=== PATIENT | female | born 1955 | race Caucasian/White ===

== ENCOUNTER 2020-11-04 05:51 | Inpatient (IN) | payer BC ==
[2020-10-28 11:36] LABS: BASOPHILS # (AUTO) 0.1 X10'3 (0-0.2); BASOPHILS % (AUTO) 1.2 % (0-1); EOSINOPHILS # (AUTO) 0.4 X10'3 (0-0.9); EOSINOPHILS % (AUTO) 8.3 % (0-6); LYMPHOCYTES # (AUTO) 1.7 X10'3 (1.1-4.8); LYMPHOCYTES % (AUTO) 31.6 % (21-51); MEAN CORPUSCULAR HEMOGLOBIN 30.6 PG (27.0-31.0); MEAN CORPUSCULAR HGB CONC 33.7 g/dL (33.0-36.5); MEAN CORPUSCULAR VOLUME 90.9 FL (78-98); MEAN PLATELET VOLUME 8.2 FL (7.4-10.4); MONOCYTES # (AUTO) 0.4 X10'3 (0-0.9); MONOCYTES % (AUTO) 7.6 % (2-12); NEUTROPHILS # (AUTO) 2.8 X10'3 (1.8-7.7); NEUTROPHILS % (AUTO) 51.3 % (42-75); PRE OP HEMATOCRIT 41.6 % (35.0-45.0); PRE OP PLATELET COUNT 241 X10'3 (140-440); RED BLOOD COUNT 4.58 X10'6 (4.20-5.60); RED CELL DISTRIBUTION WIDTH 13.8 % (11.5-14.5)
[2020-10-28 11:49] LABS: PRE OP INR 1.1 INR; PRE OP PROTIME 11.4 SECONDS (9.0-12.0)
[2020-10-28 16:31] LABS: ALBUMIN 4.1 G/DL (3.4-5.0); ALBUMIN/GLOBULIN RATIO 1.3 (1.1-1.5); ALKALINE PHOSPHATASE 70 IU/L (46-116); BLOOD UREA NITROGEN 11 MG/DL (7-18); BUN/CREATININE RATIO 12.6 (6.6-38.0); CALCIUM 9.8 MG/DL (8.5-10.1); CHLORIDE 106 MMOL/L (99-107); CREATININE 0.87 MG/DL (0.40-0.90); PRE OP ALT 19 U/L (30-65); PRE OP ANION GAP 7 (8-16); PRE OP AST 22 U/L (10-37); PRE OP BILIRUB, TOTAL 0.7 MG/DL (0.0-1.0); PRE OP GLUCOSE 92 MG/DL (70-104); PRE OP POTASSIUM 4.3 MMOL/L (3.4-5.1); PRE OP SODIUM 142 MMOL/L (135-145); TOTAL CARBON DIOXIDE 29.2 MMOL/L (24-32); TOTAL PROTEIN 7.3 G/DL (6.4-8.2); eGFR 66 ML/MIN
[~2020-11-04] VITALS: Ht 170.2 cm; Wt 60.3 kg
[2020-11-04] VITALS (16 sets, daily range): BP systolic 117–141; BP diastolic 70–86
[~2020-11-04 05:51] MED LIST: CALC600T35 PO; IBAN150T21 PO; INDOCYANINE GREEN 25 MG/10 ML VIAL IV ONE; LORA10TA7 PO; MALTODEXTRIN/FRUCTOSE 0.68 KCAL/ML LIQUID 296ML BOTTLE PO ONE; NIAC500T44 PO; ceFOXitin 2GM-NS 100mL ADDvant 100 ML IV ONE; famotidine 20mg tablet PO ONE; metroNIDAZOLE-Flagyl 500mg/NS 100 ML IV ONE; ringers solution, lacted 1,000 ML IV SCH
[2020-11-04] MEDS ORDERED: LIDOcaine 1% W/epiNEPHrine 1:100,000 20ml vial ONE (06:44)
[2020-11-04] MEDS ORDERED: BUPIVAcaine/PF 2.5 mg/ml (0.25%) 30ml vial ONE (06:44)
[2020-11-04] MEDS ORDERED: proCHLORperazine 10 MG/2 ml inj IV PRN (06:55)
[2020-11-04] MEDS ORDERED: ondansetron/PF 4mg/2ml inj IV PRN ×2 (06:55→11:00)
[2020-11-04] MEDS ORDERED: morphine 4 MG/ML inj SYRINge IV PRN (06:55)
[2020-11-04] MEDS ORDERED: ringers solution, lacted 1,000 ML IV SCH (06:55)
[2020-11-04] MEDS ORDERED: morphine 2 MG/ML inj. syringe IV PRN (06:55)
[2020-11-04] MEDS ORDERED: meperidine/PF 25mg/ml syringe IV PRN ×3 (06:55)
[2020-11-04] MEDS ORDERED: INDOCYANINE GREEN 25 MG/10 ML VIAL IV ONE (07:00)
[2020-11-04] MEDS ORDERED: midazolam 1 mg/ML 2ml injection ONE (07:08)
[2020-11-04] MEDS ORDERED: rocuronium 10mg/ml inj IV ONE (07:08)
[2020-11-04] MEDS ORDERED: fentaNYL /PF 50mcg/ml 5ml ampule ONE (07:08)
[2020-11-04] MEDS ORDERED: propofol inj 20 ML IV ONE (07:09)
[2020-11-04] MEDS ORDERED: dexamethasone sod phosphate 10mg/ml inj ONE (07:16)
[2020-11-04] MEDS ORDERED: sevoflurane 250ml liquid IH ONE (07:16)
[2020-11-04] MEDS ORDERED: neostigmine methylsulfate 1 MG/ML 10ml vial ONE (07:16)
[2020-11-04] MEDS ORDERED: acetaminophen 1000 MG/100ml vial IV ONE (07:16)
[2020-11-04] MEDS ORDERED: dexamethasone sod phosphate 4mg/ml inj. ONE (10:10)
[2020-11-04] MEDS ORDERED: ondansetron/PF 4mg/2ml inj ONE (10:10)
[2020-11-04] MEDS ORDERED: HYDROcodone/acetaminophen 5mg/325mg tablet PO PRN (11:00)
--- NOTE | 2020-11-04 11:02 | NUR ---
Received from OR via , accompanied by Anesthesiologist DR DUDLEY and report given by Anesthesiolgist. AWAKENS TO VOICE. VITALS STABLE. DRESSINGS DI. MATTY PAIN. ABD SOFT. CARREON WITH CLEAR URINE.
--- NOTE | 2020-11-04 11:45 | NUR ---
Received report from CELY Beaulieu. Awaiting patient arrival to room 344A.
--- NOTE | 2020-11-04 11:52 | NUR ---
Report called to receiving nurse. Transferred via BED Belongings . Special Issues communicated to receiving nurse. AWAKE AND ORIENTED. VITALS STABLE. DRESSINGS DI. MATTY PAIN. TO SURGICAL RM 344B AT THIS TIME.
[2020-11-04] MEDS: potassium CL 20mEq in D5-1/2NS 1,000 ML IV SCH (13:42)
[2020-11-04] MEDS ORDERED: ketorolac tromethamine 15mg/ml inj. IM SCH (14:00)
[2020-11-04] MEDS: gabapentin 100mg capsule PO SCH ×2 (15:06→21:03)
[2020-11-04] MEDS: ketorolac tromethamine 15mg/ml inj. IV SCH ×2 (15:39→21:07)
--- NOTE | 2020-11-04 18:41 | NUR ---
Problems reprioritized. Patient report given, questions answered & plan of care reviewed with CELY Sánchez.
--- NOTE | 2020-11-04 18:50 | NUR ---
Patient in room [facility]. I have received report from Werner TA and had the opportunity to ask questions and assume patient care. Addendum: 11/05/20 at 0051 by Princess Mitchell RN Amended: Links added.
--- NOTE | 2020-11-04 19:00 | NUR ---
Patient in room [facility]. I have received report from CELY Caldera and had the opportunity to ask questions and assume patient care. Rj TA
[2020-11-04] MEDS: heparin, porcine 5000 units/ml vial SQ SCH (21:08)
[2020-11-05] VITALS: BP 136/84
[2020-11-05] MEDS: potassium CL 20mEq in D5-1/2NS 1,000 ML IV SCH (00:42)
[2020-11-05] MEDS: ketorolac tromethamine 15mg/ml inj. IV SCH ×3 (02:12→13:28)
[2020-11-05 06:16] LABS: ANION GAP 8 (8-16); BLOOD UREA NITROGEN 6 MG/DL (7-18); BUN/CREATININE RATIO 7.7 (6.6-38.0); CHLORIDE 104 MMOL/L (99-107); CREATININE 0.78 MG/DL (0.40-0.90); GLUCOSE 113 MG/DL (70-104); POTASSIUM 3.6 MMOL/L (3.5-5.1); SODIUM 137 MMOL/L (135-145); TOTAL CARBON DIOXIDE 25.3 MMOL/L (24-32); eGFR 74 ML/MIN
[2020-11-05 06:27] LABS: BASOPHILS % (AUTO) 0.5 % (0-1); EOSINOPHILS % (AUTO) 0.1 % (0-6); HEMATOCRIT 34.8 % (35.0-45.0); HEMOGLOBIN 11.8 g/dl (12.0-16.0); LYMPHOCYTES # (AUTO) 1.8 X10'3 (1.1-4.8); LYMPHOCYTES % (AUTO) 22.4 % (21-51); MEAN CORPUSCULAR HEMOGLOBIN 30.8 PG (27.0-31.0); MEAN CORPUSCULAR VOLUME 90.5 FL (78-98); MONOCYTES # (AUTO) 0.8 X10'3 (0-0.9); MONOCYTES % (AUTO) 9.6 % (2-12); NEUTROPHILS # (AUTO) 5.5 X10'3 (1.8-7.7); NEUTROPHILS % (AUTO) 67.4 % (42-75); PLATELET COUNT 210 X10'3 (140-440); RED BLOOD COUNT 3.84 X10'6 (4.20-5.60); RED CELL DISTRIBUTION WIDTH 13.5 % (11.5-14.5); WHITE BLOOD COUNT 8.2 X10'3 (4.5-11.0)
[2020-11-05 06:30] VITALS: BP 115/74
--- NOTE | 2020-11-05 06:35 | NUR ---
Patient in room [facility]. I have received report from CELY Sánchez and had the opportunity to ask questions and assume patient care.
--- NOTE | 2020-11-05 06:36 | NUR ---
Problems reprioritized. Patient report given, questions answered & plan of care reviewed with Suha TA. Addendum: 11/05/20 at 0636 by Princess Mitchell RN Amended: Links added.
[2020-11-05] MEDS ORDERED: non-formulary drug (Ibandronate Sodium 1 TAB) PO SCH (08:20)
[2020-11-05] MEDS ORDERED: loratadine 10mg tablet PO PRN (08:20)
[2020-11-05] MEDS ORDERED: DOCU-171 PO (08:28)
[2020-11-05] MEDS ORDERED: HYDR-3965 PO ×2 (08:28→13:05)
[2020-11-05] MEDS ORDERED: POLY119P2 PO (08:28)
[2020-11-05] MEDS: gabapentin 100mg capsule PO SCH ×2 (09:00→12:36)
[2020-11-05] MEDS: heparin, porcine 5000 units/ml vial SQ SCH (09:01)
[2020-11-05 11:00] VITALS: BP 119/77
[2020-11-05] MEDS ORDERED: acetaminophen 325mg tablet PO PRN (12:35)
--- NOTE | 2020-11-05 13:55 | NUR ---
DC inst provided to pt & pt's son. IV DC'd, tip intact. All belongings sent w/pt. WC to vehicle.
[2020-11-05] MEDS ORDERED: calcium carbonate 500mg chew tablet PO SCH (20:00)
== END 2020-11-05 13:55 | disposition home or self-care (01) | DRG 331 ==
LOC: PAS IN 05:51 → SUR 3N 10:57
PROVIDERS: ADMIT Colon & Rectal Surgery; ATTEND Colon & Rectal Surgery
PROC: 8E0W0CZ Robotic Assisted Procedure of Trunk Region, Open Approach (ICD-10-PCS; 2020-11-04)
PROC: 0DTF0ZZ Resection of Right Large Intestine, Open Approach (ICD-10-PCS; principal; 2020-11-04 07:16)
DX: C18.4 Malignant neoplasm of transverse colon (principal)
CPT/HCPCS: Z7506; Z7508; 36415; 80048; 80053; 82948; 85025; 85610; 85730; 86885; 86900; 86901; 87081; A4215; A4618; A6258; A6402; A7000; C1758; G0378; J0131; J0694; J1100; J1644; J1885; J2250; J2405; J2704; J2710; J3010; J3480; J3490; J7030; J7120; U0003; U0005